=== PATIENT | male | born 2005 | race Caucasian/White ===

== ENCOUNTER 2025-03-27 02:10 | Day surgery (SDC) | payer BC, SELFPAY ==
[2025-03-14 10:52] VITALS: BMI 28.4
--- NOTE | 2025-03-14 11:10 | PC.NURSE ---
[facility] has started construction of its new state of the art ER which will open Spring 2026. With this, we anticipate parking may be a challenge for some our surgical patients and families. Parking spaces are limited but are available for all Surgical, obstetrics, and ER patients sharing this lot. If you arrive and find you are having a hard time finding a parking space, please note that we understand the challenges, please drive around the hospital and park near Hospital Entrance 1. When you enter this entrance, you can ask a volunteer to direct or take you back to the surgical waiting area to check in. We appreciate everyone?s understanding of these expected challenges while we build for your future. Report to the Outpatient Waiting Room, entrance under the green pavilion located off [address], at time __929 on date _03/27/25 . Planned Procedure Time: _1130 .? Time changes happen often and if your time is changed the preop area will call you the afternoon before. - You and your visitor will be asked to self-screen and do not enter if you have any COVID symptoms. Please call surgeon if you need to reschedule. - A mask is optional within the hospital at this time. Patients may have clear liquids (water, carbonated beverages, clear teas, apple juice) until 3 hours prior to surgery with a maximum of 20 ounces. - No food from midnight until time of surgery and no smoking, or chewing tobacco (or any form of nicotine). No chewing gum, candy or mints. Take only the following medications with a SIP of water on the morning of surgery: _NONE DO NOT STOP ANY OF YOUR OTHER PRESCRIPTION MEDICATIONS PRIOR TO SURGERY EXCEPT THE FOLLOWING Hold all vitamins and supplements for 3 days per anesthesiologist. Medications to discontinue per physician N/A Date to take last dose Please no make-up, nail portuguese, hairspray, perfume, deodorant, or body powder the day of surgery.? No jewelry (including any body piercings) or valuables the day of surgery, leave them at home.? Please take a shower or bath the night before, or the morning of, surgery with an antibacterial soap.? Wear comfortable, loose fitting clothing.? - Jewelry must be removed prior to entering the operating room.? Rings and piercings that are not removed may be cut off. - The hospital will not accept responsibility for valuables.? - Please leave all valuables, including medications, at home the day of surgery. If you are going home after surgery, a licensed jinriksha driver must drive you home.? - NO public transportation without another adult if you receive anesthesia. - We recommend that an adult stay with you for 24 hours following discharge. - We also recommend that you do not drive, make important decision, drink alcoholic beverages, or take any drugs that were not prescribed by your health care provider for at least 24 hours after your discharge time. Follow any additional instructions given to you from your surgeon. Telephone instructions given to __CARTER and asked if any additional questions and then verbalized understanding. Patient advised to call surgeon office or pre surgery nurse liaison [phone] if any additional questions.
--- NOTE | 2025-03-25 15:48 | P.HP_ITS ---
H&P: HPI History of Present Illness Date/Time: 03/25/25 15:48 Chief Complaint: Bilateral eustachian tube dysfunction bilateral otitis media. Narrative: Planned surgical procedure Review of Systems Review of Systems: All systems reviewed & are unremarkable except as noted in HPI and below PMFSH Family History Family History Grandparent Carcinoma of colon Social History Social History Smoking status: Never smoker Alcohol intake: current Substance use: never Substance use type: does not use Lack of Transportation: No Lack of Food: Never True Current Housing: Decline to Answer Concerned About Future Housing: Decline to Answer Difficulty Paying Gas/Electric Bills: Decline to Answer Difficulty Paying for Meds: Decline to Answer Currently Unemployed: Decline to Answer Education: High School Diploma/GED Difficulty w/ Childcare or Family Care: Decline to Answer Living arrangements: alone Spiritual care concerns: No Meds Home Medications and Allergies Home Medications ?Medication ?Instructions ?Recorded ?Confirmed ?Type No Home Medications 06/25/23 03/14/25 H istory Allergies Allergy/AdvReac Type Severity Reaction Status Date / Time No Known Allergies Allergy Verified 03/14/25 11:00 Exam Narrative: bilateral fluid retracted eardrums. Assessment and Plan Assessment and plan (1) Dysfunction of both eustachian tubes: Code(s): H69.93 - Unspecified Eustachian tube disorder, bilateral Status: Acute Assessment and Plan: plan OR bilateral nasal endoscopy bilateral eustachian tube balloon dilation bilateral myringotomy tube insertion versus just left-sided myringotomy with tube insertion. Risks were discussed including persistent perforation tube otorrhea need for further procedures cholesteatoma formation total deafness facial nerve paralysis stroke carotid artery injury failure to resolve symptoms nasal scar tissue need for turbinate outfracture. Time-out for time off school resolve symptoms. Patient voiced understanding of these risks and agreed. Damage to any structure in the clavicles and up by myself damage to any structure during induction and maintenance of anesthesia occluding vocal cord paralysis should there be a need to intubate. (2) Chronic otitis media of both ears: Code(s): H66.93 - Otitis media, unspecified, bilateral Status: Acute
[2025-03-27] VITALS (8 sets, daily range): BP systolic 92–134; BP diastolic 60–94; PULSE 59–85; RESP 12–20; TEMP 36.3–36.6; O2SAT 98–100
--- OUTSIDE RECORDS SUMMARY | 2025-03-27 02:13 | XMS_ITS | Clinical Summary ---
Author Organization [facility] Address [address] [place] [address] Care Team Providers Care Snack Steward Name Role Phone Unavailable Primary Care Provider Unavailabl e Source Comments [facility],non-owned Affiliates and Associated Physician Practices is amultiple site organization consisting of ambulatory clinics and hospital sitesin [place], [place], [place] and [place]. This disclosure is being madepursuant to the Care Everywhere program and may not contain all information available regarding this patient. Last updated 18.[employer] [facility] Allergies No known active allergies Medications * Be aware that medications may not be up to date on this document. Alwaysverify current medications with the patient. No known medications Active Problems Problem Noted Date Diagnosed Date Family history of thyroid disorder 11/22/2020 Low HDL (under 40) 11/22/2020 Myopia 06/08/2012 Immunizations Immunization Administration Dates Next Due DTaP VACCINE IM (6wk-6yrs) 08/02/2008,,2003,07/17,2003 HEP A PEDS 2 DOSE 07/24/2014,08/06/2011 HEP B VACCINE, PED/ADOL 03/20/2004,2003, HIB-PRP-OMP 3 DOSE 03/20/2004,2003, 004 Human Papilloma Virus Nineva lent Vaccine 07/24/2014 Human Papilloma Virus Sarah valent Vaccine 07/24/2014 INFLUENZA VACCINE 03/23/2012, 0,12/27/2007,02/10 MENINGOCOCAL MENINGITIS 07/24/2014 MENINGOCOCCAL ACWY (MCV4P) VAC IM 11/22/2020, MMR 08/02/2008,03/20/2004 POLIO IPV 08/02/2008, 4,2003,05/26 Pneumococcal Pcv13 Conj 03/20/2004,12/17,2003,05/26 TDAP (7yrs+) 07/24/2014 VARICELLA 08/02/2008,07/18/2004 Family History Medical History Relation Name Comments Hyperlipidemia Father Asthma Mother Thyroid Disease Mother Relation Name Status Comments Father Alive Mother Alive Social History Tobacco Use Types Packs/Day Years Used Date Smoking Tobacco: Never Smokeless Tobacco: Never Tobacco Cessation:Counseling Given: Not Answered Alcohol Use Standard Drinks/Week Comments Not Currently 0 (1 standard drink = 0.6 oz pur e alcohol) PHQ-2 Answer Date Recorded Patient Health Questionnaire-2 Score 1 11/22/2020 Sex and Gender Information Value Date Recorded Sex Assigned at Male 11/01/2020 4:18 PM CDT Legal Sex Male 3:07 PM CDT Gender Identity Male 11/01/2020 4:18 PM CDT Sexual Orientation Straight 11/01/2020 4: 18 PM CDT Last Filed Vital Signs Vital Sign Reading Time Taken Comments Blood Pressure 123/76 08/24/2023 3:35 PM CDT Pulse 81 08/24/2023 3:35 PM CDT Temperature 36 C (96.8 F) 11/22/2020 9:10 AM CDT Respiratory Rate 20 11/22/2020 9:10 AM CDT Oxygen Saturation 99% 12/25/2019 10:20 AM CDT Inhaled Oxygen Concentration - - Weight 90.7 kg (200 lb) 10/12/2023 1:22 PM CDT Height 177.8 cm (5' 10) 10/12/2023 1:22 PM CDT Body Mass Index 28.7 10/12/2023 1:22 PM CDT Plan of Treatment Health Maintenance Due Date Last Done Comments HPV VACCINE (2 - Male 2-dose series) 01/24/2015 07/24/2014, 07/24/2014 HIV SCREENING 2018 MENINGOCOCCAL (Group B) VACC INE SHARED DECISION-MAKING (1 of 2 - Standard) 2019 HEPATITIS C SCREENING 03/14/2021 DEPRESSION SCREENING 05/04/2024 DTAP/TDAP/TD VACCINES (7 - T d or Tdap) 07/24/2024 07/24/2014, 08/02/2008, 07/08/2004, Additional history exists COVID-19 VACCINE (5 - 2024-2 6 season) 2025 05/06/2022, 03/23/2021, 08/03/2020, Additional history exists INFLUENZA VACCINE (#1) 2025 2, 01/16/2010, 12/27/2007, Additional history exists ZOSTER VACCINE (1 of 2) 2053 HEPATITIS B VACCINE Completed 03/20/2004, 2003, 2003 HIB VACCINE Completed 03/20/2004, 07/02, 2003 PNEUMOCOCCAL VACCINE Completed 03/20/2004, 2003, 2003, Additional history exists MENINGOCOCCAL GROUPS A/C/Y/W VACCINE Completed 11/22/2020, 07/24/2014, 07/24/2014 Insurance [employer]
--- OUTSIDE RECORDS SUMMARY | 2025-03-27 02:13 | XMS_ITS | Encounter Summary ---
Author Organization [facility] Address [address] [place] [address] Care Team Providers Care Commuter Train Operator Name Role Phone Unavailable Primary Care Provider Unavailabl e Encounter Details Date Type Department Care Team (Late st Contact Info) Description 2003 Outpatient Historical [facility] [address] [address] Saad Sherman MD NO ADDRESS ON FILE Social History Tobacco Use Types Packs/Day Years Used Date Smoking Tobacco: Never Assessed Sex and Gender Information Value Date Recorded Sex Assigned at Not on file Legal Sex Male 5:52 PM CDT Gender Identity Not on file Sexual Orientation Not on file documented as of this encounter Plan of Treatment Not on file documented as of this encounter Visit Diagnoses Not on filedocumented in this encounter
--- OUTSIDE RECORDS SUMMARY | 2025-03-27 02:13 | XMS_ITS | Encounter Summary ---
Author Organization [facility] Address [address] [place] [address] Phone Care Team Providers Care Quotation Clerk Name Role Phone Provider, None Primary Care Provider Unavailabl e Encounter Details Date Type Department Care Team (Late st Contact Info) Description 01/17/2022 [facility] [address] [place] [address] Mi Gonzalez MD [address] [place] [address] Acute upper respiratory infection, unspecified Social History Tobacco Use Types Packs/Day Years Used Date Smoking Tobacco: Never Assessed Sex and Gender Information Value Date Recorded Sex Assigned at Male 03/20/2025 10:52 PM ENTERPRISE ARCHITECT MANAGER Legal Sex Male 2:15 PM CDT Gender Identity Male 03/20/2025 10:52 PM ENTERPRISE ARCHITECT MANAGER Sexual Orientation Not on file documented as of this encounter Plan of Treatment Not on file documented as of this encounter Procedures Procedure Name Priority Date/Time Associated Diagnosis Comments SARS-COV-2 BY MOLECULAR Routine 01/17/2022 10:51 AM CDT Acute upper respiratory infection, unspecified documented in this encounter Results * SARS-COV-2 BY MOLECULAR (01/17/2022 10:51 AM CDT) SARSCOV2 NOT DETECTED (Referen ce Range for this test is Not Detected ) [facility] FAST DX 01/17/2022 11:01 PM CDT [facility] Comment:This test was perfor med by a RT-PCR method. Other 01/17/2022 10:5 1 AM CDT 01/17/2022 4:52 PM CDT Narrative [facility] - 01/17/2022 11:01 PM CDT Authorized Fact Sheets about this test for providers and patients are available at: https://www.fda.gov/medical-devices/xojmpjman-ljcnvotntk-ulrxwsr-devices/emergen -us e-authorizations us Mi Gonzalez MD MICROBIOLOGY - GENERAL ORDERA BLES Final Result [facility] [address] [place] [address], documented in this encounter Visit Diagnoses Diagnosis Acute upper respiratory infection, unspecified documented in this encounter Additional Health Concerns Infection Onset Date Last Indicated Resolved Time COVID - 19 01/17/2022 01/17/2022 01/27/2022 12:1 6 AM CDT documented as of this encounter Care Teams Quotation Clerk Relationship Specialty Start Date End Date Provider, None [place] PCP - General 03/20/25 documented as of this encounter
--- OUTSIDE RECORDS SUMMARY | 2025-03-27 02:13 | XMS_ITS | Clinical Summary ---
Author Organization [facility] Address [address] [place] [address] Care Team Providers Care Mica Washer Gluer Name Role Phone Provider, None Primary Care Provider Unavailabl e Encounters Date Type Department Care Team Description 03/20/2025 10:28 PM MEDICAL STAFF SERVICES COORDINATOR - 03/21/2025 12:30 AM MEDICAL STAFF SERVICES COORDINATOR Emergency [facility] Emergency Dept [address] [place] [phone] Kelvin Snow MD Right ankle sprain Discharge Disposition: Discharged to home or Selfcare 03/20/2025 Travel from Last 3 Months Social History Tobacco Use Types Packs/Day Years Used Date Smoking Tobacco: Never Assessed Sex and Gender Information Value Date Recorded Sex Assigned at Male 03/20/2025 10:52 PM MEDICAL STAFF SERVICES COORDINATOR Legal Sex Male 2:15 PM CDT Gender Identity Male 03/20/2025 10:52 PM MEDICAL STAFF SERVICES COORDINATOR Sexual Orientation Not on file Last Filed Vital Signs Vital Sign Reading Time Taken Comments Blood Pressure 137/83 03/20/2025 11:01 PM MEDICAL STAFF SERVICES COORDINATOR Pulse 92 03/20/2025 11:01 PM MEDICAL STAFF SERVICES COORDINATOR Temperature 36.8 C (98.3 F) 03/20/2025 10:00 PM MEDICAL STAFF SERVICES COORDINATOR Respiratory Rate 16 03/20/2025 11:01 PM MEDICAL STAFF SERVICES COORDINATOR Oxygen Saturation 96% 03/20/2025 11:01 PM MEDICAL STAFF SERVICES COORDINATOR Inhaled Oxygen Concentration - - Weight 90.7 kg (200 lb) 03/20/2025 10:00 PM MEDICAL STAFF SERVICES COORDINATOR Height 176.5 cm (5' 9.5) 03/20/2025 10:00 PM CS T Body Mass Index 29.11 03/20/2025 10:00 PM MEDICAL STAFF SERVICES COORDINATOR Plan of Treatment Health Maintenance Due Date Last Done Comments Hepatitis C Virus (HCV) Screening 2003 Human Papillomavirus (HPV) Immunization (2 - Male 2-dose series) 01/24/2015 07/24/2014 Meningococcal B Immunization (1 of 2 - Standard) 2019 Influenza Immunization (#1) 01/02/202503/05, 01/16/2010, 12/27/2007, Additional history exists SARS-COV-2 Immunization ( season) 2025 05/06/2022, 03/23/2021, 08/03/2020, Additional history exists Respiratory Syncytial Virus (RSV) Immunization (Adult) (1 - 1-dose 75+ series) 2078 Hepatitis B Immunization Completed 004, 2003, 2003 Pneumococcal Immunization Combined Completed 03/20/2004, 2003, 2003, Additional history exists Measles Mumps Rubella (MMR) Immunization Discontinued 08/02/2008, 03/20/2004 Polio (IPV) Immunization Discontinued 009, 2003, 2003, Additional history exists Varicella Immunization Completed 08/02/2008, 2004 DTaP/Tdap/Td Immunization Discontinued 2014, 08/02/2008, 07/08/2004, Additional history exists Hepatitis A Immunization Discontinued 07/24/2014, 0408/2011 TdaP Immunization Completed 07/24/2014 Meningococcal Immunization (ACWY) Completed 11/22/2020, 07/24/2014 Rotavirus Immunization Aged Out No lo nger eligible based on patient's age to complete this topic Procedures Procedure Name Priority Date/Time Associated Diagnosis Comments XR FOOT 3 OR MORE VIEWS RIGHT STAT 03/20/2025 10:59 PM MEDICAL STAFF SERVICES COORDINATOR XR ANKLE 3 OR MORE VIEWS RIGHT STAT 03/20/2025 10:20 PM MEDICAL STAFF SERVICES COORDINATOR from Last 3 Months Results * XR FOOT 3 OR MORE VIEWS RIGHT (03/20/2025 10:59 PM MEDICAL STAFF SERVICES COORDINATOR) Anatomical Region Laterality Modality LOWER EXTREMITY, foot Right Digital Ra diography 03/20/2025 10:5 9 PM MEDICAL STAFF SERVICES COORDINATOR Impressions 03/21/2025 8:50 AM MEDICAL STAFF SERVICES COORDINATOR IMPRESSION: No acute displaced fracture. Narrative 03/21/2025 8:50 AM MEDICAL STAFF SERVICES COORDINATOR DICTATING PHYSICIAN: Con Sandhu M.D. EXAM: XR ANKLE 3 OR MORE VIEWS RIGHT, XR FOOT 3 OR MORE VIEWS RIGHT 03/20/2025 10:20 PM HISTORY: Right ankle and foot pain. COMPARISON: None. FINDINGS: 3 views of the right ankle and 3 views of the right foot. Number of images 6. Right ankle: No acute displaced fracture. The ankle mortise is congruent. The talar dome is intact. Normal osseous mineralization. Soft tissue swelling right ankle. Right foot: No acute displaced fracture. The joint spaces are congruent. Normal osseous mineralization. Procedure Note Con Sandhu MD - 03/21/2025 DICTATING PHYSICIAN: Con Sandhu M.D. EXAM: XR ANKLE 3 OR MORE VIEWS RIGHT, XR FOOT 3 OR MORE VIEWS RIGHT03/20/2025 10:20 PM HISTORY: Right ankle and foot pain. COMPARISON: None. FINDINGS: 3 views of the right ankle and 3 views of the right foot.Number of images 6. Right ankle: No acute displaced fracture. The ankle mortise is congruent.The talar dome is intact. Normal osseous mineralization. Soft tissueswelling right ankle. Right foot: No acute displaced fracture. The joint spaces are congruent.Normal osseous mineralization. IMPRESSION: No acute displaced fracture. Lilliam Gonzalez DO IM DIAGNOSTIC ORDERABLES Fi nal Result * XR ANKLE 3 OR MORE VIEWS RIGHT (03/20/2025 10:20 PM MEDICAL STAFF SERVICES COORDINATOR) Anatomical Region Laterality Modality LOWER EXTREMITY, ankle Right Digital R adiography 03/20/2025 10:2 0 PM MEDICAL STAFF SERVICES COORDINATOR Impressions 03/21/2025 8:50 AM MEDICAL STAFF SERVICES COORDINATOR IMPRESSION: No acute displaced fracture. Narrative 03/21/2025 8:50 AM MEDICAL STAFF SERVICES COORDINATOR DICTATING PHYSICIAN: Con Sandhu M.D. EXAM: XR ANKLE 3 OR MORE VIEWS RIGHT, XR FOOT 3 OR MORE VIEWS RIGHT 03/20/2025 10:20 PM HISTORY: Right ankle and foot pain. COMPARISON: None. FINDINGS: 3 views of the right ankle and 3 views of the right foot. Number of images 6. Right ankle: No acute displaced fracture. The ankle mortise is congruent. The talar dome is intact. Normal osseous mineralization. Soft tissue swelling right ankle. Right foot: No acute displaced fracture. The joint spaces are congruent. Normal osseous mineralization. Procedure Note Con Sandhu MD - 03/21/2025 DICTATING PHYSICIAN: Con Sandhu M.D. EXAM: XR ANKLE 3 OR MORE VIEWS RIGHT, XR FOOT 3 OR MORE VIEWS RIGHT03/20/2025 10:20 PM HISTORY: Right ankle and foot pain. COMPARISON: None. FINDINGS: 3 views of the right ankle and 3 views of the right foot.Number of images 6. Right ankle: No acute displaced fracture. The ankle mortise is congruent.The talar dome is intact. Normal osseous mineralization. Soft tissueswelling right ankle. Right foot: No acute displaced fracture. The joint spaces are congruent.Normal osseous mineralization. IMPRESSION: No acute displaced fracture. Cele Dow MD IMG DIAGNOSTIC ORDERABLES Fin al Result from Last 3 Months Insurance [facility] Care Teams Mica Washer Gluer Relationship Specialty Start Date End Date Provider, None [place] PCP - General 03/20/25
--- OUTSIDE RECORDS SUMMARY | 2025-03-27 02:13 | XMS_ITS | Clinical Summary ---
Author Organization [employer] [facility] Address [address] Attn: Epic Prelude ADT JIE NUNEZ [address] Care Team Providers Care Speech Correction Consultant Name Role Phone Unavailable Primary Care Provider Unavailabl e Medications HYDROcodone-cl taminophen (NORCO) 5-325 mg tablet Take 1-2 tablets by mouth every 6 hours as needed for pain. 20 Tablet 10/21/2021 11:22 AM CDT 2 Active methylPREDNISol one (Medrol, Steven,) 4 mg Tablets, Dose Pack Take pack as directed 21 Tablet 11/06/2021 5:56 PM CDT 2 Active ofloxacin (FLOXIN) 0.3 % Drops Administer 5 drops into the right ear daily for 7 days 5 mL 05/11/2022 1:23 PM SENIOR LINUX UNIX ADMINISTRATOR 3 Active mupirocin (BACTROBAN) 2 % Ointment Apply to affected area(s) twice daily. 22 Gram 12/03/2022 5:14 PM CDT 3 Active neomycin-polymy michelle B-hydrocortison e (CORTISPORIN OTIC) 3.5-10,000-1 mg/mL-unit/mL-% otic suspension Administer 5 drops in the affected ear(s) every 8 hours. 10 mL 05/01/2023 12:29 PM SENIOR LINUX UNIX ADMINISTRATOR 3 Active azithromycin (ZITHROMAX) 250 mg tablet TAKE 2 TABLETS BY MOUTH ON DAY 1, THEN TAKE 1 TABLET BY MOUTH FOR DAYS 2-5. 6 Tablet 05/09/2023 5:30 PM SENIOR LINUX UNIX ADMINISTRATOR 4 Active Social History Tobacco Use Types Packs/Day Years Used Date Smoking Tobacco: Never Assessed Adolescent Education Answer Date Record ed Getting School Help Needed Not on file 12/03 Sex and Gender Information Value Date Recorded Sex Assigned at Not on file Legal Sex Male 5:52 PM CDT Gender Identity Not on file Sexual Orientation Not on file Plan of Treatment Health Maintenance Due Date Last Done Comments HPV VACCINES (1 - Male 3-dose series) 2018 DTAP/TDAP/TD VACCINES (1 - Tdap) 2022 HEPATITIS B VACCINES (1 of 3 - 19+ 3-dose series) 03/04 INFLUENZA VACCINE (#1) 2024 Insurance [employer] (INTERNAL) [facility] [employer] Commercial
--- OUTSIDE RECORDS SUMMARY | 2025-03-27 02:13 | XMS_ITS | Clinical Summary ---
Author Organization [address] Address [address] [place] [phone] Care Team Providers Care Retail Product Advisor Name Role Phone Neda Nevarez MD Primary Care Provider [phone] Allergies No known active allergies Medications No known medications Active Problems Problem Noted Date Diagnosed Date Low HDL (under 40) 11/22/2020 Myopia 06/08/2012 Astigmatism 06/08/2012 Social History Tobacco Use Types Packs/Day Years Used Date Smoking Tobacco: Never Tobacco Cessation:Counseling Given: Not Answered Sex and Gender Information Value Date Recorded Sex Assigned at Not on file Legal Sex Male 12:23 AM AUTOTRANSFUSIONIST Gender Identity Not on file Sexual Orientation Not on file Last Filed Vital Signs Vital Sign Reading Time Taken Comments Blood Pressure 104/62 11/03/2022 9:38 AM CDT Pulse 98 11/03/2022 9:38 AM CDT Temperature 36.7 C (98.1 F) 11/03/2022 9:38 AM CDT Respiratory Rate 20 11/03/2022 9:38 AM CDT Oxygen Saturation 97% 11/03/2022 9:38 AM CDT Inhaled Oxygen Concentration - - Weight 90.7 kg (200 lb) 11/03/2022 9:38 AM CDT Height 177.8 cm (5' 10) 11/03/2022 9:38 AM CDT Body Mass Index 28.7 11/03/2022 9:38 AM CDT Plan of Treatment Health Maintenance Due Date Last Done Comments Depression Screening 2003 Hepatitis C Screening 2003 HPV Vaccines (2 - Male 2-dos e series) 01/24/2015 07/24/2014 Meningococcal B Vaccine (1 o f 2 - Standard) 2019 Regular Well Visit/Exam 18-64 2021 DTaP/Tdap/Td Vaccine (7 - Td or Tdap) 07/24/2024 07/24/2014, 08/02/2008, 07/08/2004, Additional history exists Covid-19 Vaccine (5 - 2024-2 6 season) 2025 05/06/2022, 03/23/2021, 08/03/2020, Additional history exists Influenza Vaccine (#1) 2025 2, 01/16/2010, 12/27/2007, Additional history exists Hepatitis B Screening Completed 03/20/2004 , 2003, 2003 Pneumococcal vaccine <65 Completed 004, 2003, 2003, Additional history exists Varicella Vaccines Completed 08/02/2008, 07/18/2004 [place] Care Teams Retail Product Advisor Relationship Specialty Start Date End Date Neda Nevarez MD PCP - General Pediatrics 05/11/22
--- NOTE | 2025-03-27 07:27 | WPDHPUPDATE1 ---
History and Physical Update Update Date/Time: 03/27/25 07:27 History and Physical has been reviewed, including an updated exam of the patient. There are NO changes in the patient's condition. Risks, benefits, and alternatives have been discussed and questions answered. Patient agrees to proceed with procedure.
[2025-03-27] MEDS: ACETAMINOPHEN 500 MG TABLET 1000 MG PO (07:48)
--- NOTE | 2025-03-27 07:55 | P.PNAN_ITS ---
Anes - Initial Pre Proc Eval Procedure: Operation Date: 03/27/25 08:00 Proposed Procedures p Left Side Myringotomy with Tube Insertion, Nasal Endoscopy, Bilateral Eustachian Tube Balloon Dilation - Simon Bowman MD Date/Time: 03/27/25 07:55 Surgeon: Simon Bowman MD Pre Op Diagnosis: unspec eusc tube disorder Lt ear Patient Data Age: 20 Gender: M Height: 1.78 m Weight: 90.85 kg Last Vital Signs Temp 36.3 C L 03/27/25 07:49 Pulse 85 03/27/25 07:49 Resp 16 03/27/25 07:49 BP 134/78 03/27/25 07:49 Pulse Ox 100 03/27/25 07:49 O2 Del Method Room Air 03/27/25 07:49 Allergies Allergy/AdvReac Type Severity Reaction Status Date / Time No Known Allergies Allergy Verified 03/27/25 07:47 Home Medications ?Medication ?Instructions ?Recorded ?Confirmed ?Type No Home Medications 06/25/23 03/14/25 H istory Patient hx anesthesia problems: none Family hx anesthesia problems: none Results Review: All pre-operative results and documents have been reviewed as part of the pre- operative evaluation. [facility] Family History Family History Grandparent Carcinoma of colon Social History Social History Smoking status: Never smoker Alcohol intake: current Substance use: never Substance use type: does not use Lack of Transportation: No Lack of Food: Never True Current Housing: Decline to Answer Concerned About Future Housing: Decline to Answer Difficulty Paying Gas/Electric Bills: Decline to Answer Difficulty Paying for Meds: Decline to Answer Currently Unemployed: Decline to Answer Education: High School Diploma/GED Difficulty w/ Childcare or Family Care: Decline to Answer Living arrangements: alone Spiritual care concerns: No Anes - Eval Final PreProcedure Day of Procedure 03/27/25 07:55 Patient weight: overweight Heart: regular rate and rhythm Lungs: clear to auscultation Airway: Mallampati scale class II Neurological: alert and oriented Last oral intake: >/= 8 hours ASA classification: II Emergent: no Anesthetic plan: proceed Anesthesia type and monitoring: general GIVS and standard monitoring Results Review: All pre-operative results and documents have been reviewed as part of the pre- operative evaluation. Informed Consent: The patient's anesthetic plan and its attendant risks and benefits were discussed with the patient/family/POA. Questions were solicited and answers provided to the satisfaction of the patient/family/POA.
[2025-03-27] MEDS: LACTATED RINGERS 1,000 ML 30 ML IV CONT ×2 (09:17)
--- NOTE | 2025-03-27 09:32 | W.PM.PROC2 ---
Procedure Note - Detailed Date of Procedure 03/27/25 Pre-op Diagnosis Eustachian tube dysfunction, bilateral turbinate hypertrophy Post-op Diagnosis Same Procedure Performed 1. Bilateral nasal endoscopy 2. Bilateral inferior turbinate outfracture 3. Bilateral eustachian tube balloon dilation 4. Bilateral myringotomy with tube insertion Surgeon Simon Bowman MD Anesthesia General (LMA) Indications See above Findings Bilateral retracted TMs, bilateral hypertrophied inferior turbinates Description of Procedure Patient identified consent verified in the preop holding area. Patient brought to the operating. Time-out performed. General anesthesia induced LMA secured. Patient prepped draped position procedure confirmed. Arun microscope utilized to the right-sided cerumen removed curette myringotomy made tube placed drops placed no complication other than 1 drop of blood. No fluid in the middle ear. Exact same procedure performed on the left side with the exact same findings other than no blood. Attention then turned to the nasal passages equipment set up. Afrin-soaked pledgets placed bilaterally allowed to sit for 5 minutes. Turbinates were obstructive inferior turbinates. They were outfractured. Good view of the dian bilaterally. Endoscope inserted bilaterally with the balloon the bilateral eustachian tubes were then balloon for 2 minutes at 12 atmospheres. No complications. Little bit of bleeding from the right side. Patient tolerated the procedure very well. Total blood loss 1 cc. I performed all dictated portions procedure no complications. Care the patient back to Anesthesiology. Patient taken to PACU. Estimated Blood Loss 1 Drains No Packing No Pathology None sent Complications No immediate complications Condition Stable Disposition PACU [facility] Billing Surgery - Charge Forward: Surgery Billing
== END 2025-03-27 10:48 | disposition home or self-care (01) ==
PROVIDERS: Visit Provider Otolaryngology
PROC: (CPT 30930; principal; 2025-03-27 08:00)
DX: H69.93 Unspecified Eustachian tube disorder, bilateral (principal); H66.93 Otitis media, unspecified, bilateral; J34.3 Hypertrophy of nasal turbinates; H61.23 Impacted cerumen, bilateral; Z80.0 Family history of malignant neoplasm of digestive organs
CPT/HCPCS: 30930; 69436; 69706; A9270; C1726; J2003; J2250; J2405; J2704; J3010; J7120